=== PATIENT | female | born 1995 | race Caucasian/White ===

== ENCOUNTER 2020-07-08 12:19 | Emergency (ER) | payer MEDICAID ==
[~2020-07-08] VITALS: Ht 142.2 cm; Wt 59.3 kg
--- NOTE | 2020-07-08 12:36 | NUR ---
MANAGING PARTNER: EKG DONE IN TRIAGE
[2020-07-08] MEDS ORDERED: DIAZEPAM 5 MG TABLET PO ONE (13:00)
[2020-07-08] MEDS ORDERED: HYDROcodone/APAP 5/325 TABLET PO ONE (13:00)
[2020-07-08] MEDS ORDERED: DIAZEPAM 5 MG TABLET ONE (13:02)
[2020-07-08] MEDS ORDERED: HYDROcodone/APAP 5/325 TABLET ONE (13:03)
--- NOTE | 2020-07-08 14:06 | NUR ---
BREAK RN NOTE: PT PRESENTS TO ED WITH C/O STERNAL CHEST PAIN X4 DAYS , SOB, COUGH X 1 WEEK, RADIATING "SOMETIMES" TO UPPER AND LOWER BACK. PT HAS CHRONIC ABD PAIN, STATES AT BASELINE AT THIS TIME. EKG TAKEN IN TRIAGE. ALL MONITORS IN PLACE. PT STATES PAIN NOW FROM 07/12 TO 04/11. PT HAD COVID TEST AT [facility] 07/06, RESULTS STILL PENDING. PT IN DROPLET + ISO. PT A&O, RESPS EVEN AND UNLABORED, SINUS TACH RATE 90'S WITH NO ECTOPY. AWAIITNG RECORDS AT THIS TIME.
[2020-07-08 14:40] LABS: HCG UR SG 1.029 (1.003-1.030); MICROSCOPIC NOT IND
[2020-07-08 14:50] VITALS: BP 109/62
--- NOTE | 2020-07-08 15:05 | NUR ---
PT STATES THE MEDICATIONS ARE NOT WORKING. PT STATES THE ONLY THING THAT HELPS IS MORPHINE AND EVEN THAT'S STARTING TO NOT WORK WELL. PROVIDER NOTIFIED.
--- NOTE | 2020-07-08 15:15 | NUR ---
PT IS TEARFUL, STATING SHE WISHES SHE COULD JUST GET THROUGH THE DAY WITH NO PAIN. EDUCATED PT ON PAIN CONTROL INTERVENTIONS, PT VERBALIZES UNDERSTANDING AND STATES SHE HAS TRIED ALL OF THEM AND THEY DON'T WORK. PT STATES SHE HAS ASKED HER OB PROVIDER FOR A REFFERAL TO PAIN CLINIC BUT REFUSES TO GIVE HER ONE. I SPOKE WITH THE EDP FOR A REFFERAL.
== END 2020-07-08 15:53 | disposition home or self-care (01) ==
LOC: ED 14:17
DX: J45.21 Mild intermittent asthma with (acute) exacerbation (principal); J00 Acute nasopharyngitis [common cold]; B34.9 Viral infection, unspecified; R06.02 Shortness of breath; R05 Cough; R07.89 Other chest pain
CPT/HCPCS: 81003; 81025; 93005; 99284

== ENCOUNTER 2020-07-17 10:58 | Emergency (ER) | payer MEDICAID ==
[~2020-07-17] VITALS: Ht 142.2 cm; Wt 59.2 kg
[2020-07-17 11:04] VITALS: BP 137/85
--- NOTE | 2020-07-17 11:34 | NUR ---
THIS IS A 24 YO F W/ C/O SIX2 WEEKS. PT REPORTS CHRONIC UNMANAGED PAIN FOR PCOS, ENDOMETRIOSIS AND INTERSTITIAL CYSTITIS. PT REPORTS SI PLAN IS TO CUT. PT REPORTS CUTTING ON LEG PAST 2 WEEKS, HAS CUT WRISTS IN THE PAST. PT RESTING ON GURNEY W/ GARAGE DOORS DOWN AND SITTER OUTSIDE ROOM FOR SAFETY. PERSONAL BELONGINGS TO SAFE KEEPING. URINE COLLECTED AND SENT TO LAB. AT BEDSIDE FOR ED EVAL.
--- NOTE | 2020-07-17 11:52 | NUR ---
PT REPORTS UNDERGOING TX FOR YEAST INFECTION. LAST DOSE OF ABX IN SAFETY LOCKER, TO BE ADMIN TONIGHT.
[2020-07-17 11:55] LABS: MICROSCOPIC INDICATED
[2020-07-17 12:01] LABS: AMPHETAMINE SCREEN, URINE Negative (Negative); BARBITURATE SCREEN, URINE Negative (Negative); BENZODIAZEPINE SCREEN, URINE Negative (Negative); CANNABINOID SCREEN, URINE Positive (Negative); COCAINE SCREEN, URINE Negative (Negative); METHADONE SCREEN, URINE Negative (Negative); OPIATE SCREEN, URINE Negative (Negative)
[2020-07-17 12:08] LABS: BASOPHILS % (AUTO) 0 % (0-1); EOSINOPHILS % (AUTO) 3 % (1-7); LYMPHOCYTES % (AUTO) 21 % (22-44); MEAN CORPUSCULAR HEMOGLOBIN 29.4 pg (27.0-34.8); MEAN CORPUSCULAR HGB CONC 33.1 g/dL (32.4-35.8); MEAN PLATELET VOLUME 7.8 fL (7.4-10.4); MONOCYTES % (AUTO) 7 % (2-9); NEUTROPHILS % (AUTO) 69 % (42-75); PLATELET COUNT 318 x10^3/uL (130-400); RED BLOOD COUNT 4.68 x10^6/uL (3.82-5.3); RED CELL DISTRIBUTION WIDTH 13.6 % (9.6-15.2)
[2020-07-17 12:11] LABS: MD NO
--- NOTE | 2020-07-17 12:18 | NUR ---
ERNESTO SUN AT BEDSIDE. ED SAFETY DIET TRAY DELIVERED.
[2020-07-17 12:20] LABS: ALANINE AMINOTRANSFERASE 21 U/L (12-78); ANION GAP 8 mmol/L (5-15); CALCIUM 9.2 mg/dL (8.5-10.1); CHLORIDE 112 mmol/L (98-107); CREATININE 0.83 mg/dL (0.55-1.02); SALICYLATE LEVEL 1.8 mg/dL (2.8-20.0)
[2020-07-17 12:34] LABS: ALKALINE PHOSPHATASE 74 U/L (45-117); BILIRUBIN,TOTAL 0.4 mg/dL (0.2-1.0); TOTAL PROTEIN 7.9 g/dL (6.4-8.2)
[2020-07-17] MEDS ORDERED: CEFDINIR 300 MG CAPSULE ONE (13:00)
[2020-07-17] MEDS ORDERED: LORazepam 0.5MG TABLET ONE (13:00)
[2020-07-17] MEDS ORDERED: LORazepam 0.5MG TABLET PO PRN (13:00)
--- NOTE | 2020-07-17 13:16 | NUR ---
PER ERNESTO SUN, PT NOW ON L2K. HOSPITAL BED ORDERED.
--- NOTE | 2020-07-17 14:15 | NUR ---
THROUGHPUT RN: CLAIRE DECLINED SECONDARY TO [facility] [employer].
--- NOTE | 2020-07-17 14:25 | NUR ---
EBONIE RN: [facility] FAXED TO [facility], [facility], AND [facility].
--- NOTE | 2020-07-17 14:47 | NUR ---
PT TRANSPORTED TO HOSPITAL BED. PT RESTING IN ROOM W/ GARAGE DOORS DOWN AND SITTER OUTSIDE ROOM FOR SAFETY. RESP EVEN AND UNLABORED, MARYN.
--- NOTE | 2020-07-17 15:16 | NUR ---
REPORT GIVEN TO DANTE ANDERSON FROM [facility]. STATES THEY ARE ACCEPTING PT AND SHE CAN COME DESTIN.
--- NOTE | 2020-07-17 15:32 | NUR ---
EBONIE RN: ÓSCAR FLORES AT .T. FOR PRIOR AUTHORIZATION FOR PT TO BE TRANSFERRED VIA [facility] FROM [facility] ED TO [facility].
--- NOTE | 2020-07-17 15:46 | NUR ---
SPOKE W/ AND REQ RX FOR ABX TO GO W/ PT TO TRANSFERING FACILITY.
--- NOTE | 2020-07-17 16:06 | NUR ---
PTS MOM GIVEN UPDATE ABOUT PTS TRANSFER PER PT REQUEST.
--- NOTE | 2020-07-17 16:06 | NUR ---
PT TRANSPORTED VIA [facility] TO [facility].
[2020-07-17] MEDS ORDERED: CEFDINIR 300 MG CAPSULE PO SCH (21:00)
== END 2020-07-17 16:06 ==
LOC: ED 14:20
DX: S70.312A Abrasion, left thigh, initial encounter (principal); F33.2 Major depressive disorder, recurrent severe without psychotic features; N30.00 Acute cystitis without hematuria; X58.XXXA Exposure to other specified factors, initial encounter; Y93.89 Activity, other specified; Y92.89 Other specified places as the place of occurrence of the external cause; Y99.8 Other external cause status
CPT/HCPCS: 36415; 80053; 80307; 81001; 84443; 85025; 87086; 99285

== ENCOUNTER 2020-07-28 12:57 | Emergency (ER) | payer MEDICAID ==
[~2020-07-28] VITALS: Ht 142.2 cm; Wt 60.0 kg
--- NOTE | 2020-07-28 13:40 | NUR ---
PT IN HOSPITAL GOWN. PT ABLE TO PROVIDE URINE SAMPLE. URINE WALKED TO LAB. WILL CONTINUE TO MONITOR.
[2020-07-28 13:46] LABS: BASOPHILS % (AUTO) 0 % (0-1); EOSINOPHILS % (AUTO) 5 % (1-7); LYMPHOCYTES % (AUTO) 28 % (22-44); MEAN CORPUSCULAR HEMOGLOBIN 29.7 pg (27.0-34.8); MEAN CORPUSCULAR HGB CONC 33.3 g/dL (32.4-35.8); MEAN PLATELET VOLUME 7.4 fL (7.4-10.4); MONOCYTES % (AUTO) 8 % (2-9); NEUTROPHILS % (AUTO) 59 % (42-75); PLATELET COUNT 323 x10^3/uL (130-400); RED BLOOD COUNT 4.42 x10^6/uL (3.82-5.3); RED CELL DISTRIBUTION WIDTH 13.3 % (9.6-15.2)
[2020-07-28 13:51] LABS: MD NO
[2020-07-28 13:58] LABS: ALBUMIN 3.9 g/dL (3.4-5.0); ANION GAP 7 mmol/L (5-15); CALCIUM 8.8 mg/dL (8.5-10.1); CHLORIDE 109 mmol/L (98-107); CREATININE 0.92 mg/dL (0.55-1.02)
[2020-07-28 13:58] LABS: MICROSCOPIC AUTO
[2020-07-28] MEDS ORDERED: ACETAMINOPHEN 500 MG TABLET ONE (14:13)
[2020-07-28 14:16] VITALS: BP 109/63
--- NOTE | 2020-07-28 14:19 | NUR ---
Break RN note: Pt resting in bed, c/o bladder pain /. Pt refusing Tylenol ordered. Pt able to position self for comfort in bed, denies other needs.
[2020-07-28] MEDS ORDERED: TRAZ-175 PO (14:20)
[2020-07-28] MEDS ORDERED: BUSP5TAB2 PO (14:20)
[2020-07-28] MEDS ORDERED: HYDR25CA PO (14:20)
[2020-07-28] MEDS ORDERED: DULO20CA45 PO (14:20)
[2020-07-28] MEDS ORDERED: ACETAMINOPHEN 500 MG TABLET PO ONE (14:30)
--- NOTE | 2020-07-28 14:43 | NUR ---
Break RN note: Pt requesting pain medication. Dr. Ambrose made aware of this. No new orders received. Pt updated on this.
== END 2020-07-28 15:21 | disposition home or self-care (01) ==
LOC: ED 13:54
DX: R10.32 Left lower quadrant pain (principal); R10.31 Right lower quadrant pain; R32 Unspecified urinary incontinence; M54.5 Low back pain; J45.909 Unspecified asthma, uncomplicated
CPT/HCPCS: 36415; 76770; 80048; 81001; 82040; 84703; 85025; 99284

== ENCOUNTER 2020-09-01 15:47 | Emergency (ER) | payer MEDICAID ==
[~2020-09-01] VITALS: Ht 142.2 cm; Wt 62.0 kg
[~2020-09-01 15:47] MED LIST: BUSP5TAB2 PO; DULO20CA45 PO; HYDR25CA PO; TRAZ-175 PO
[2020-09-01 16:25] VITALS: BP 132/75
--- NOTE | 2020-09-01 16:30 | NUR ---
PT STATES SHE WILL NOT WAIT UNLESS SHE GETS TAKEN TO A ROOM NOW.
== END 2020-09-01 16:55 | disposition left against medical advice (07) ==
LOC: ED 16:48
DX: M54.5 Low back pain (principal); M54.2 Cervicalgia; R51.9 Headache, unspecified; W10.9XXA Fall (on) (from) unspecified stairs and steps, initial encounter; Y93.89 Activity, other specified; Y92.89 Other specified places as the place of occurrence of the external cause; Y99.8 Other external cause status
CPT/HCPCS: 99281

== ENCOUNTER 2021-01-28 16:48 | Emergency (ER) | payer MEDICAID ==
[~2021-01-28] VITALS: Ht 142.2 cm; Wt 80.6 kg
--- NOTE | 2021-01-28 17:44 | NUR ---
TO ROOM FROM LOBBY. NAD.
--- NOTE | 2021-01-28 18:00 | NUR ---
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 PT ALSO STATES SHE FELL AND HAS PAIN IN R HIP RADIATING TO R KNEE. PT RESTING ON [facility]. S.
--- NOTE | 2021-01-28 18:15 | NUR ---
ERP DR. FAY AT BEDSIDE FOR EVAL.
[2021-01-28] MEDS ORDERED: SODIUM CHLORIDE 0.9% 1,000ML IVBOLUS ONE ×2 (18:30→21:00)
[2021-01-28] MEDS ORDERED: ONDANSETRON 2MG/ML, 2ML ONE ×2 (18:30→23:16)
[2021-01-28] MEDS ORDERED: MORPHINE SULFATE 4 MG/ML, 1ML ONE ×2 (18:30→20:49)
[2021-01-28] MEDS ORDERED: MORPHINE SULFATE 4 MG/ML, 1ML IVPush ONE (18:30)
[2021-01-28] MEDS ORDERED: ONDANSETRON 2MG/ML, 2ML IVPush ONE ×2 (18:30→23:30)
[2021-01-28] MEDS ORDERED: SODIUM CHLORIDE FLUSH 10ML SYR IVF ONE (18:30)
[2021-01-28 18:38] LABS: HCG UR SG 1.029 (1.003-1.030); MICROSCOPIC AUTO
--- NOTE | 2021-01-28 18:46 | NUR ---
PT RESTING ON GURNEY. NADN. MARQUEZ.
[2021-01-28 18:58] LABS: BASOPHILS % (AUTO) 1 % (0-1); EOSINOPHILS % (AUTO) 3 % (1-7); LYMPHOCYTES % (AUTO) 25 % (22-44); MEAN CORPUSCULAR HEMOGLOBIN 29.8 pg (27.0-34.8); MEAN CORPUSCULAR HGB CONC 33.3 g/dL (32.4-35.8); MEAN PLATELET VOLUME 7.6 fL (7.4-10.4); MONOCYTES % (AUTO) 8 % (2-9); NEUTROPHILS % (AUTO) 64 % (42-75); PLATELET COUNT 289 x10^3/uL (130-400); RED BLOOD COUNT 4.11 x10^6/uL (3.82-5.3); RED CELL DISTRIBUTION WIDTH 14.5 % (9.6-15.2)
[2021-01-28 19:00] LABS: MD NO
[2021-01-28 19:05] LABS: ALANINE AMINOTRANSFERASE 33 U/L (12-78); ALBUMIN 3.1 g/dL (3.4-5.0); ANION GAP 10 mmol/L (5-15); CALCIUM 8.3 mg/dL (8.5-10.1); CHLORIDE 111 mmol/L (98-107); CREATININE 1.04 mg/dL (0.55-1.02)
[2021-01-28 19:07] LABS: ALKALINE PHOSPHATASE 79 U/L (45-117); BILIRUBIN,TOTAL 0.1 mg/dL (0.2-1.0); TOTAL PROTEIN 6.6 g/dL (6.4-8.2)
--- NOTE | 2021-01-28 19:38 | NUR ---
PT RESTING ON GURNEY. NADN. MARQUEZ.
--- NOTE | 2021-01-28 20:23 | NUR ---
ONLY 1 US COMPLETED. SPOKE W/ KATHRYN, [facility] IN REGARDS TO THIS. STATES THAT THEY WILL HAVE IT DONE SOON.
--- NOTE | 2021-01-28 20:35 | NUR ---
PT CHART REVIEWED AND PLACED FOR RECHECK.
[2021-01-28] MEDS ORDERED: morphine SULFATE 10 MG/ML, 1ML IVPush ONE (21:00)
--- NOTE | 2021-01-28 21:02 | NUR ---
REPORT GIVEN TO MONICA HATFIELD.
--- NOTE | 2021-01-28 21:57 | NUR ---
PT PROVIDED ICE REQUESTED.
[2021-01-28 22:32] VITALS: BP 102/58
--- NOTE | 2021-01-28 22:32 | NUR ---
PT STATES IMPORVEMENT OF PAIN FROM 9/10 TO 5/10.
[2021-01-28] MEDS ORDERED: HYDROcodone/APAP 5/325 TABLET ONE (23:17)
[2021-01-28] MEDS ORDERED: FAMOTIDINE 20 MG/2 ML ONE (23:17)
[2021-01-28] MEDS ORDERED: FAMOTIDINE 20 MG/2 ML IVPush ONE (23:30)
[2021-01-28] MEDS ORDERED: HYDROcodone/APAP 5/325 TABLET PO ONE (23:30)
== END 2021-01-28 23:51 | disposition home or self-care (01) ==
LOC: ED 20:40
DX: G89.29 Other chronic pain (principal); R10.2 Pelvic and perineal pain; R10.31 Right lower quadrant pain; R10.33 Periumbilical pain; R11.2 Nausea with vomiting, unspecified; E86.0 Dehydration; J45.909 Unspecified asthma, uncomplicated; F17.200 Nicotine dependence, unspecified, uncomplicated
CPT/HCPCS: 36415; 72220; 76700; 76830; 80053; 81001; 81025; 83036; 85025; 87086; 96361; 96374; 96375; 96376; 99285; J2270; J2405; J7030

== ENCOUNTER 2021-02-18 10:13 | Day surgery (SDC) | payer MEDICAID ==
[~2021-02-18] VITALS: Ht 142.2 cm; Wt 77.5 kg
[~2021-02-18 10:13] MED LIST changes: +GABA800T5 PO; +LORA-446 PO; +QUET200T7 PO; +TRAZ150T62 PO
[2021-02-18 10:44] VITALS: BP 123/90
[2021-02-18] MEDS ORDERED: CHLORHEXIDINE 15 ML UDC ONE (10:44)
[2021-02-18 10:59] LABS: HCG UR SG 1.024 (1.003-1.030)
[2021-02-18] MEDS ORDERED: CHLORHEXIDINE 15 ML UDC PO ONE (11:00)
[2021-02-18] MEDS ORDERED: LACTATED RINGERS 1,000 ML IV SCH (11:00)
[2021-02-18] MEDS ORDERED: LORazepam 1MG TABLET PO ONE (11:00)
[2021-02-18] MEDS ORDERED: BUPIVACAINE/PF 0.25% ONE (11:44)
[2021-02-18] MEDS ORDERED: EPINEPHRINE 1 MG/ML, 1ML ONE (11:45)
[2021-02-18] MEDS ORDERED: MIDAZOLAM 1 MG/ML, 2ML ONE (11:50)
[2021-02-18] MEDS ORDERED: DEXAMETHASONE 4 MG/ML, 5ML ONE (12:06)
[2021-02-18] MEDS ORDERED: FENTANYL PF 250 MCG/5ML ONE (12:06)
[2021-02-18] MEDS ORDERED: CEFAZOLIN 1,000 MG ONE (12:06)
[2021-02-18] MEDS ORDERED: SUGAMMADEX 200 MG/2 ML IVPush ONE (12:38)
[2021-02-18] MEDS ORDERED: ONDANSETRON 2MG/ML, 2ML ONE ×2 (12:38→12:39)
[2021-02-18] MEDS ORDERED: SILVER NITRATE STICK TP ONE (12:39)
[2021-02-18] MEDS ORDERED: PROPOFOL 10 MG/ML, 20ML ONE (12:39)
[2021-02-18] MEDS ORDERED: ROCURONIUM 10MG/ML,5ML ONE (12:39)
[2021-02-18] MEDS ORDERED: FENTANYL PF 100 MCG/2ML ONE (13:10)
[2021-02-18] MEDS ORDERED: OXYcodone 5 MG/5 ML ORAL.SOL UDC ONE (13:11)
[2021-02-18] MEDS: FENTANYL PF 100 MCG/2ML IV PRN ×2 (13:15→13:25)
[2021-02-18] MEDS ORDERED: HYDROmorphone 1 MG/ML, 1ML INJ IVPush PRN (13:30)
[2021-02-18] MEDS ORDERED: MEPERIDINE/PF 25MG/ML,1ML ONE (13:30)
[2021-02-18] MEDS ORDERED: LABETALOL 5MG/ML, 20ML IV PRN (13:30)
[2021-02-18] MEDS ORDERED: DIAZEPAM 5 MG/ML, 2ML IVPush PRN (13:30)
[2021-02-18] MEDS ORDERED: EPHEDRINE 50 MG/ML, 1ML IVPush PRN (13:30)
[2021-02-18] MEDS ORDERED: hydrALAzine 20 MG/ML, 1ML IV PRN (13:30)
[2021-02-18] MEDS ORDERED: PROMETHAZINE 12.5 MG SUPP PR PRN (13:30)
[2021-02-18] MEDS ORDERED: PROMETHAZINE 25 MG/ML, 1ML IVPush PRN (13:30)
[2021-02-18] MEDS ORDERED: OXYcodone 5 MG/5 ML ORAL.SOL UDC PO PRN (13:30)
[2021-02-18] MEDS ORDERED: DIPHENHYDRAMINE 50 MG/ML, 1ML IVPush PRN ×2 (13:30)
[2021-02-18] MEDS ORDERED: MIDAZOLAM 1 MG/ML, 2ML IV PRN (13:30)
[2021-02-18] MEDS ORDERED: ONDANSETRON 2MG/ML, 2ML IVPush PRN (13:30)
[2021-02-18] MEDS ORDERED: MEPERIDINE/PF 25MG/0.5ML IVPush PRN (13:30)
[2021-02-18] MEDS ORDERED: ALBUTEROL SULFATE 2.5 MG/3 ML NPPB PRN (13:30)
[2021-02-18] MEDS ORDERED: DIPHENHYDRAMINE 50 MG/ML, 1ML ONE (13:39)
== END 2021-02-18 15:15 | disposition home or self-care (01) ==
LOC: OUT 10:13
PROVIDERS: ATTEND Obstetrics & Gynecology
DX: N94.6 Dysmenorrhea, unspecified (principal); N80.2 Endometriosis of fallopian tube; N83.02 Follicular cyst of left ovary; N73.6 Female pelvic peritoneal adhesions (postinfective); J45.909 Unspecified asthma, uncomplicated; E66.9 Obesity, unspecified; Z20.822 Contact with and (suspected) exposure to COVID-19; Z88.6 Allergy status to analgesic agent
CPT/HCPCS: 58661; 81025; 87635; 88305; J0171; J0690; J1100; J1170; J1200; J2175; J2250; J2405; J2704; J3010; J7120

== ENCOUNTER 2021-03-03 20:14 | Emergency (ER) | payer MEDICAID ==
[2021-03-03 21:26] LABS: BASOPHILS % (AUTO) 1 % (0-1); EOSINOPHILS % (AUTO) 2 % (1-7); LYMPHOCYTES % (AUTO) 25 % (22-44); MEAN CORPUSCULAR HEMOGLOBIN 29.9 pg (27.0-34.8); MEAN CORPUSCULAR HGB CONC 33.3 g/dL (32.4-35.8); MEAN PLATELET VOLUME 7.6 fL (7.4-10.4); MONOCYTES % (AUTO) 7 % (2-9); NEUTROPHILS % (AUTO) 66 % (42-75); PLATELET COUNT 408 x10^3/uL (130-400); RED BLOOD COUNT 4.64 x10^6/uL (3.82-5.3); RED CELL DISTRIBUTION WIDTH 13.9 % (9.6-15.2)
[2021-03-03 21:27] LABS: MD NO
[2021-03-03 21:31] LABS: ALBUMIN 3.9 g/dL (3.4-5.0); ANION GAP 7 mmol/L (5-15); CALCIUM 9.6 mg/dL (8.5-10.1); CHLORIDE 109 mmol/L (98-107)
[2021-03-03 21:37] LABS: CREATININE 0.99 mg/dL (0.55-1.02)
[2021-03-03] MEDS ORDERED: MORPHINE SULFATE 4 MG/ML, 1ML IVPush PRN (22:00)
[2021-03-03] MEDS ORDERED: ONDANSETRON 2MG/ML, 2ML IVPush ONE (22:00)
[2021-03-03] MEDS ORDERED: ONDANSETRON 2MG/ML, 2ML ONE (22:06)
[2021-03-03] MEDS ORDERED: MORPHINE SULFATE 4 MG/ML, 1ML ONE ×2 (22:08→23:58)
--- NOTE | 2021-03-03 22:19 | NUR ---
PT C/O POST SURGICAL INCISION PAIN FROM January PT C/O OF PAIN IN LOWER SURGICAL INCISION SINCE LAST NIGHT. PT HAS BEEN VOMITING SINCE THIS MORNING PT ATTACHED TO MONITORS. VSS. BED IN LOW POSITION. PT IN ND. CALL LIGHT WITHIN REACH. WCTM
[2021-03-03 22:41] LABS: MICROSCOPIC INDICATED
[2021-03-03] MEDS ORDERED: OMNIPAQUE 350 MG/ML, 100ML BOTTLE ONE (22:44)
--- NOTE | 2021-03-03 23:50 | NUR ---
Patient is resting comfortably in bed. Bed in lowest, rails engaged, call light on lap. Vital Signs within normal limits. WCTM.
[2021-03-04] MEDS ORDERED: MORPHINE SULFATE 4 MG/ML, 1ML IVPush ONE (00:30)
[2021-03-04] MEDS ORDERED: CEPHALEXIN 500 MG CAPSULE ONE (00:57)
[2021-03-04 00:59] VITALS: BP 109/67
[2021-03-04] MEDS ORDERED: CEPHALEXIN 500 MG CAPSULE PO ONE (01:00)
== END 2021-03-04 01:12 | disposition home or self-care (01) ==
LOC: ED 22:04
DX: L03.311 Cellulitis of abdominal wall (principal); R10.2 Pelvic and perineal pain; J45.909 Unspecified asthma, uncomplicated; Z87.891 Personal history of nicotine dependence
CPT/HCPCS: 36415; 74177; 80048; 81001; 82040; 84703; 85025; 87086; 96374; 96375; 96376; 99285; J2270; J2405; Q9967

== ENCOUNTER 2021-03-16 10:07 | Emergency (ER) | payer MEDICAID ==
[~2021-03-16] VITALS: Ht 142.2 cm; Wt 76.7 kg
--- NOTE | 2021-03-16 10:53 | NUR ---
PT PRESENTS TO ED WITH C/O N/V/D X2 DAYS, LLQ ABD PAIN. PT STATES SEEN HERE LAST WEEK AND DX WITH CELLULITIS OF ABDOMINAL WALL. PT STATES THEY FINISHED ROUND OF ABX BUT HAVING SAME SYMPTOMS BEFORE. PT A&O, RESPS EVEN AND UNLABORED, NADN.
[2021-03-16] MEDS ORDERED: SODIUM CHLORIDE 0.9% 1,000ML IVBOLUS ONE (11:30)
[2021-03-16] MEDS ORDERED: ONDANSETRON 2MG/ML, 2ML IVPush ONE (11:30)
[2021-03-16] MEDS ORDERED: ONDANSETRON 2MG/ML, 2ML ONE (11:40)
[2021-03-16] MEDS ORDERED: MORPHINE SULFATE 4 MG/ML, 1ML ONE ×2 (11:40→13:17)
[2021-03-16 11:44] LABS: BASOPHILS % (AUTO) 0 % (0-1); EOSINOPHILS % (AUTO) 2 % (1-7); LYMPHOCYTES % (AUTO) 8 % (22-44); MEAN CORPUSCULAR HEMOGLOBIN 30.2 pg (27.0-34.8); MEAN CORPUSCULAR HGB CONC 33.9 g/dL (32.4-35.8); MEAN PLATELET VOLUME 7.6 fL (7.4-10.4); MONOCYTES % (AUTO) 9 % (2-9); NEUTROPHILS % (AUTO) 81 % (42-75); PLATELET COUNT 284 x10^3/uL (130-400); RED BLOOD COUNT 4.47 x10^6/uL (3.82-5.3); RED CELL DISTRIBUTION WIDTH 14.1 % (9.6-15.2)
[2021-03-16 11:49] LABS: MICROSCOPIC NOT IND
[2021-03-16 11:54] LABS: ALANINE AMINOTRANSFERASE 42 U/L (12-78); ALBUMIN 3.5 g/dL (3.4-5.0); ANION GAP 9 mmol/L (5-15); CALCIUM 9.4 mg/dL (8.5-10.1); CHLORIDE 112 mmol/L (98-107); CREATININE 0.73 mg/dL (0.55-1.02)
[2021-03-16 11:56] LABS: ALKALINE PHOSPHATASE 88 U/L (45-117); BILIRUBIN,TOTAL 0.2 mg/dL (0.2-1.0); TOTAL PROTEIN 7.7 g/dL (6.4-8.2)
[2021-03-16] MEDS: MORPHINE SULFATE 4 MG/ML, 1ML IVPush PRN ×2 (11:57→13:20)
--- NOTE | 2021-03-16 12:02 | NUR ---
pt medicated per order, tolerated well. fluids infusing, pt a&o, resps even and unlabored, vss, nadn. ua sent to lab
[2021-03-16 12:55] VITALS: BP 121/76
--- NOTE | 2021-03-16 12:55 | NUR ---
pt sitting in bed, a&o, resps even and unlabored, vss, nadn. fluids infusing. pt unable to poop at for stool sample at this time.
--- NOTE | 2021-03-16 13:46 | NUR ---
pt educated on discharge and follow-uup, verbalized understanding. ambulatory to discharge with steady gait.
== END 2021-03-16 13:49 | disposition home or self-care (01) ==
LOC: ED 10:15
DX: R10.84 Generalized abdominal pain (principal); R19.7 Diarrhea, unspecified; F17.200 Nicotine dependence, unspecified, uncomplicated; J45.909 Unspecified asthma, uncomplicated
CPT/HCPCS: 36415; 80053; 81003; 83690; 85025; 96361; 96374; 96375; 96376; 99284; J2270; J2405; J7030

== ENCOUNTER 2021-03-17 13:21 | Emergency (ER) | payer MEDICAID ==
[~2021-03-17] VITALS: Ht 142.2 cm; Wt 76.0 kg
[2021-03-17 14:07] VITALS: BP 127/77
--- NOTE | 2021-03-17 14:13 | NUR ---
PT REFUSING COVID TESTING. SINAI YANEZ AWARE.
--- NOTE | 2021-03-17 14:51 | NUR ---
occupational therapy asst: Pt ambulatory to room from lobby at this time.
[2021-03-17] MEDS ORDERED: SODIUM CHLORIDE 0.9% 1,000ML IVBOLUS ONE (15:30)
[2021-03-17] MEDS ORDERED: SODIUM CHLORIDE FLUSH 10ML SYR IVF ONE (15:30)
[2021-03-17 16:11] LABS: MICROSCOPIC NOT IND
[2021-03-17 16:12] LABS: BASOPHILS % (AUTO) 0 % (0-1); EOSINOPHILS % (AUTO) 0 % (1-7); LYMPHOCYTES % (AUTO) 15 % (22-44); MEAN CORPUSCULAR HEMOGLOBIN 30.2 pg (27.0-34.8); MEAN CORPUSCULAR HGB CONC 34.5 g/dL (32.4-35.8); MEAN PLATELET VOLUME 7.7 fL (7.4-10.4); MONOCYTES % (AUTO) 15 % (2-9); NEUTROPHILS % (AUTO) 70 % (42-75); PLATELET COUNT 273 x10^3/uL (130-400); RED BLOOD COUNT 4.63 x10^6/uL (3.82-5.3)
[2021-03-17 16:22] LABS: ALANINE AMINOTRANSFERASE 41 U/L (12-78); ALBUMIN 3.6 g/dL (3.4-5.0); ANION GAP 9 mmol/L (5-15); CALCIUM 8.7 mg/dL (8.5-10.1); CHLORIDE 110 mmol/L (98-107); CREATININE 0.79 mg/dL (0.55-1.02)
[2021-03-17 16:24] LABS: ALKALINE PHOSPHATASE 74 U/L (45-117); BILIRUBIN,TOTAL 0.4 mg/dL (0.2-1.0)
--- NOTE | 2021-03-17 16:30 | NUR ---
service recovery attempted. pt emotional and not open to explanation. Wants COVID swab, but only wants it superficially placed into nare. States that [facility] made her nose bleed.
[2021-03-17] MEDS ORDERED: ONDANSETRON ODT 4 MG PO ONE (17:00)
--- NOTE | 2021-03-17 17:35 | NUR ---
This RN at bedside for extensive education about COVID swab testing. Pt emotional, continually repeating, "I've had 2 different nasal swab tests. People keep telling me different things about what kind of test I can have." This RN educated pt that one test is offered in the ER. Pt educated that it is her right to refuse. Pt refused.
== END 2021-03-17 17:41 | disposition home or self-care (01) ==
LOC: ED 14:31
DX: R50.9 Fever, unspecified (principal); R11.2 Nausea with vomiting, unspecified; R00.0 Tachycardia, unspecified; J45.909 Unspecified asthma, uncomplicated; Z90.722 Acquired absence of ovaries, bilateral
CPT/HCPCS: 36415; 71045; 80053; 81003; 85025; 96360; 99284; J7030